=== PATIENT | female | born 1950 | race Caucasian/White ===

== ENCOUNTER 2018-07-28 10:54 | Inpatient (IN) ==
[2018-07-29] MEDS: *HR* OxyCODONE Immed Rel 5 MG TABLET PO PRN ×2 (17:48→23:34)
[2018-07-29] MEDS: tiZANidine 4 MG TABLET PO PRN (19:11)
[2018-07-29] MEDS: Aspirin Enteric Coated 325 MG Tablet PO SCH (19:11)
[2018-07-30] MEDS: tiZANidine 4 MG TABLET PO PRN ×3 (02:13→17:38)
[2018-07-30] MEDS: *HR* OxyCODONE Immed Rel 5 MG TABLET PO PRN ×5 (05:45→23:30)
[2018-07-30] MEDS: *HR* Enoxaparin 30 MG/0.3 ML SYRINGE SQ SCH (05:45)
[2018-07-30 06:43] LABS: Basophils % 0.4 %; Eosinophils # 0.1 K/mcL (0.0-0.6); Eosinophils % 1.5 %; Hematocrit 31.6 % (35.3-44.9); Hemoglobin 10.8 g/dL (11.5-15.4); Immature Granulocytes % 0.5 % (0-4); Lymphocytes # 1.4 K/mcL (0.6-4.6); Lymphocytes % 19.3 %; Mean Corpuscular HGB Conc 34.2 g/dL (31.6-35.5); Mean Corpuscular Hemoglobin 30.4 pg (28.0-33.3); Mean Platelet Volume 9.8 fL (9.4-12.4); Monocytes # 0.6 K/mcL (0.0-1.3); Monocytes % 7.9 %; Neutrophils # 5.2 K/mcL (1.6-8.9); Platelet Count 186 K/mcL (140-400); Red Blood Count 3.55 M/mcL (3.82-4.97); Red Cell Distribution Width 14.5 % (11.5-14.5); Segmented Neutrophils % 70.4 %
[2018-07-30 06:58] LABS: BUN/Creatinine Ratio 19 (6-26); Blood Urea Nitrogen 13 mg/dL (8-23); Calcium 8.7 mg/dL (8.6-10.3); Carbon Dioxide 24 mEq/L (23-29); Chloride 107 mEq/L (98-107); Glucose 125 mg/dL (70-105); Osmolality,Calculated 286 (280-300); Potassium 3.7 mEq/L (3.5-5.1); Sodium 137 mEq/L (136-145); eGFR For Non-African Americans > 60 (> 60)
[2018-07-30] MEDS ORDERED: Lisinopril 20 MG TABLET PO SCH (09:00)
[2018-07-30] MEDS ORDERED: *HR* OxyCODONE Immed Rel 5 MG TABLET PO PRN (10:04)
[2018-07-30] MEDS: Aspirin Enteric Coated 325 MG Tablet PO SCH ×2 (10:28→19:24)
--- NOTE | 2018-07-30 11:03 | Internal Med History&Physical ---
Addendum entered and electronically signed by Ana Dugan 07/30/18 14:42: I have personally performed a face to face evaluation on this patient. I have reviewed and agree with the care plan. PT has some issues with pain control recently but currently seems tolerable. Original Note: Date of Encounter: 07/30/18 Time of Encounter: 11:01 Assessment and Plan (1) S/p total knee replacement, bilateral Current visit: No Status: Acute Patient has had a bilateral knee replacement on 07/27/18. Bilateral surgical incisions appear healthy and intact. Patient with moderate to severe pain to her bilateral knees after movement. Patient noted to have had a recent decrease in pain medication coverage after discharge from acute facility. We will increase patient's current pain medications and review her dosing of muscle relaxant. We will continue with continuous icing to bilateral knees. We will continue with physical therapy. Patient remains afebrile. (2) Diabetes mellitus Current visit: Yes Status: Chronic No acute issues. Patient's glucoses morning was 126 on fasting labs. 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 We will continue with current medications Qualifiers: Hypertension type: unspecified Qualified Code(s): I10 - Essential (primary) hypertension Internal Medicine - H&P: HPI Chief complaint: bilateral TKR Admitted From: Hospital to Hospital Transfer Plans for Post Hospital Care: Home History of present illness: Ms. Salgado is a 68 year old female, who was admitted to this facility due to we akness secondary to having bilateral total knee replacements done on 07/27/18. Patient currently states that she has moderate to severe pain to her bilateral legs after being discharged from hospital yesterday, during which time they reduced her pain medication. Patient complains of dull pain to bilateral legs which increases with movement. Patient currently has continuous icing to bilateral knees. Patient states that her knee replacement source due to osteoarthritis. Patient denies any other discomforts or shortness of breath. Past Med Surg Social Fam HX - Past Medical History Medical history: arthritis, hyperlipidemia, hypertension, other Additional medical history: hypercholesterolemia. depression/anxiety. barretts esophagus. diverticulitis Psychiatric history: anxiety, depression - Past Surgical History Surgical History: cholecystectomy, CLARENCE/BSO, other Additional surgical history: bowel resection. partial bowel resection. several surgeries for adhesions. ACDF - neck. EGD. lap choley. left knee arthroscopy 2. partial meniscectomy. EGD. colonoscopy - Social History Smoking Status: Never smoker Smokeless Tobacco Status: No Alcohol use: none Drug use: none - Family History Mother Living Status: Father Living Status: Hx Family Cardiac Disorders: Yes Internal Medicine - H&P: Meds Lisinopril [Zestril] 20 mg PO DAILY 08/27/15 [History] Paroxetine HCl [Paxil] 40 mg PO DAILY 08/27/15 [History] Pravastatin Sodium [Pravachol] 40 mg PO DAILY 08/27/15 [History] Acetaminophen [Tylenol] 500 mg PO Q6HR PRN 07/27/18 [History] Aspirin Enteric Coated [Aspirin EC] 325 mg PO BID 10 Days #20 tablet.dr 07/27/18 [Rx] Docusate Sodium [Colace] 100 mg PO BID 5 Days #10 capsule 07/27/18 [Rx] Esomeprazole Magnesium [Nexium 24Hr] 20 mg PO DAILY 07/27/18 [History] OxyCODONE Immed Rel [Roxicodone 5 MG] 5 mg PO Q6HR PRN 7 Days #28 tablet 07/27/18 [Rx] Lidocaine Patch [Lidoderm 5% patch] 2 each TP DAILY adh..patch 07/29/18 [Rx] Tizanidine HCl 2 mg PO TID PRN 07/29/18 [History] Allergy/AdvReac Type Severity Reaction Status Date / Time No Known Allergies Allergy Verified 07/27/18 07:07 All Systems PM: A 10-system review of systems was performed and is negative for pertinent findings except as documented above in the HPI. - Constitutional Constitutional: as per HPI, no chills, no fever(s), no night sweats - EENT Eyes: as per HPI, no change in vision, no discharge, no pain, no photophobia Ears: as per HPI, no ear discharge, no ear pain, no tinnitus Nose, mouth and throat: as per HPI, no dysphagia, no nasal discharge, no neck pain, no sore throat - Breasts Breasts: as per HPI - Cardiovascular Cardiovascular ROS IM: as per HPI, no chest pain, no diaphoresis, no dyspnea, no lightheadedness, no palpitations, no syncope - Respiratory Respiratory: as per HPI, no cough, no dyspnea, no wheezing, no excessive phlegm production - Gastrointestinal Gastrointestinal: as per HPI, no abdominal pain, no diarrhea, no hematemesis, no hematochezia, no melena, no nausea, no vomiting - Genitourinary Genitourinary: as per HPI, no change in urinary stream, no dysuria, no flank pain, no hematuria - Musculoskeletal Musculoskeletal ROS IM: as per HPI, no numbness, no tingling - Integumentary Integumentary IM: as per HPI, no rash, no unusual bruising - Neurological Neurological ROS: as per HPI, no confusion, no convulsions, no focal weakness, no numbness, no tingling, no tremor(s) - Psychiatric Psychiatric: as per HPI - Hematologic/Lymphatic Hematologic/Lymphatic: no easy bruising - Constitutional Vitals: Temp Pulse Resp BP Pulse Ox 99.0 F 70 18 117/71 96 07/30/18 07:36 07/30/18 07:36 07/30/18 07:36 07/30/18 07:36 07/30/18 07:36 General appearance: Present: A&O X 3, pleasant - Head Head exam: Present: atraumatic, normocephalic - Eye Eye exam: Present: PERRL, conjuntiva pink, sclera anicteric Pupils: Present: PERRL - Neck Neck exam general surgery: Present: supple, trachea midline. Absent: lymphadenopathy - Respiratory Respiratory exam: Present: CTAB. Absent: accessory muscle use, rales, rhonchi, wheezes Additional comments: Lungs are clear throughout upper [place] and diminished bases. Respiratory effort appears relaxed. No productive cough noted. - Cardiovascular Cardiovascular exam: Present: RRR, +S1, +S2. Absent: diastolic murmur, gallop, rubs, systolic murmur - GI/Abdominal GI/Abdominal exam: Present: normal bowel sounds, soft, no peritoneal signs. Absent: distended, tenderness - Extremities Exam Extremities exam: Present: warm, radial pulses palpable and symmetrical. Absent: calf tenderness, cyanotic, pedal edema Additional comments: Bilateral knees with midline surgical incisions that appear healthy and intact. Continuous icing and use to bilateral knees. - Neurological Exam Neurological exam: Present: CN II-XII intact, oriented X3, no focal deficits. Absent: pronater drift, facial droop, speech deficit - Skin Skin exam: Present: dry, intact Internal Med - H&P Results - Labs CBC & Chem 7: 07/30/18 06:35 07/30/18 06:35 Labs: Short CBC 07/30/18 Range/Units 06:35 WBC 7.4 (4.3-11.1) K/mcL Hgb 10.8 L (11.5-15.4) g/dL Hct 31.6 L (35.3-44.9) % Plt Count 186 (140-400) K/mcL Neutrophils # 5.2 (1.6-8.9) K/mcL BMP 07/30/18 06:35 Sodium 137 Potassium 3.7 Chloride 107 Carbon Dioxide 24 BUN 13 Creatinine 0.68 Glucose 125 H Calcium 8.7
[2018-07-30] MEDS ORDERED: *HR* OxyCODONE Immed Rel 5 MG TABLET PO SCH (12:00)
[2018-07-30] MEDS: 0.9 % Sodium Chloride 500 ML IVC SCH (18:40)
[2018-07-30] MEDS: Sennosides 8.6 MG TABLET PO SCH (19:24)
[2018-07-31] MEDS: 0.9 % Sodium Chloride 500 ML IVC SCH ×2 (00:21→08:05)
[2018-07-31] MEDS: 0.9 % Sodium Chloride 1,000 ML IVC SCH ×2 (03:00→15:08)
[2018-07-31] MEDS: *HR* OxyCODONE Immed Rel 5 MG TABLET PO PRN ×5 (03:30→20:48)
[2018-07-31] MEDS: *HR* Enoxaparin 30 MG/0.3 ML SYRINGE SQ SCH (05:28)
[2018-07-31] MEDS: tiZANidine 4 MG TABLET PO PRN (05:29)
[2018-07-31] MEDS: Aspirin Enteric Coated 325 MG Tablet PO SCH ×2 (08:01→20:13)
[2018-07-31] MEDS: Sennosides 8.6 MG TABLET PO SCH ×2 (08:02→20:12)
--- NOTE | 2018-07-31 13:12 | Internal Med Progress Note ---
Date of Encounter: 07/31/18 Time of Encounter: 13:10 - Assessment and plan (1) S/p total knee replacement, bilateral Current Visit: Yes Status: Acute Assessment and plan: Patient continues with water pain to bilateral knees which increases during mobilization. Patient's pain has reduced difficulty after recent changes in pain medication. Patient's surgical incisions appear healthy and intact. Minimal edema noted. No erythema or ecchymosis. Patient continues to have a low systolic blood pressure and continues to receive IV fluids this morning. We will discontinue Zanaflex as a possible medication cause and the hypotension. Patient's Zestril has been discontinued. (2) Diabetes mellitus Current Visit: Yes Status: Chronic Assessment and plan: No acute issues. Patient's glucose has been well controlled. We will continue with current medications. 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 Patient currently has received IV fluids overnight and his had her Zestril discontinued. We will currently discontinue Zanaflex. Patient remains asy mptomatic and has been ambulating without any complaints of palpitations or dizziness. Qualifiers: Hypertension type: unspecified Qualified Code(s): I10 - Essential (primary) hypertension - Time Spent With Patient less than 15 minutes - Subjective Interval history: Patient continues to complain of moderate pain to bilateral knees, which increases during mobilization. Patient states that her pain has reduced quite a bit after having adjustments to her pain medications. Nursing reports patient continues to have low systolic blood pressure with this morning's systolic and 87. Patient currently is asymptomatic and denies any palpitations or chest discomforts. Denies any dizziness. - Constitutional Vitals: Temp Pulse Resp BP Pulse Ox 97.7 F 70 14 87/42 96 07/31/18 07:30 07/31/18 07:30 07/31/18 07:30 07/31/18 07:30 07/31/18 07:30 General appearance: Present: A&O X 3, pleasant - Head Head exam: Present: atraumatic, normocephalic - Eye Eye exam: Present: PERRL, conjuntiva pink, sclera anicteric Pupils: Present: PERRL - Neck Neck exam general surgery: Present: supple, trachea midline. Absent: lymphadenopathy - Respiratory Respiratory exam: Present: CTAB. Absent: accessory muscle use, rales, rhonchi, wheezes - Cardiovascular Cardiovascular exam: Present: RRR, +S1, +S2. Absent: diastolic murmur, gallop, rubs, systolic murmur - GI/Abdominal GI/Abdominal exam: Present: normal bowel sounds, soft, no peritoneal signs. Absent: distended, tenderness - Extremities Exam Extremities exam: Present: warm, radial pulses palpable and symmetrical. Absent: calf tenderness, cyanotic, pedal edema Additional comments: Bilateral knees surgical sites remain healthy and intact. Continuous icing and use while patient is in bed. - Neurological Exam Neurological exam: Present: CN II-XII intact, oriented X3, no focal deficits. Absent: pronater drift, facial droop, speech deficit - Skin Skin exam: Present: dry, intact Internal Medicine: Result - Labs CBC & Chem 7: 07/30/18 06:35 07/30/18 06:35 Consult Discharge Plan - Plan Referrals: America Henry MD [Primary Care Provider] -
[2018-07-31] MEDS ORDERED: Ketorolac 30 MG/ML VIAL IVP ONE (13:47)
[2018-08-01] MEDS: *HR* Enoxaparin 30 MG/0.3 ML SYRINGE SQ SCH (04:35)
[2018-08-01] MEDS: *HR* OxyCODONE Immed Rel 5 MG TABLET PO PRN ×5 (04:35→20:26)
[2018-08-01] MEDS: Sennosides 8.6 MG TABLET PO SCH ×2 (08:22→21:47)
[2018-08-01] MEDS: Aspirin Enteric Coated 325 MG Tablet PO SCH (08:22)
[2018-08-01] MEDS ORDERED: Bisacodyl 10 MG RECTAL SUPPOSITORY RC PRN (11:00)
--- NOTE | 2018-08-01 11:13 | Internal Med Progress Note ---
Date of Encounter: 08/02/18 Time of Encounter: 10:45 - Subjective Interval history: - Assessment and plan (1) S/p total knee replacement, bilateral Current Visit: Yes Status: Acute Assessment and plan: Patient had severe complaints of pain in bilateral knees which increases during mobilization. She was also getting very anxious with therapy. She was given increase in pain med and also added Buspar. PT appears to be improved and much more comfortable now, she had anxiety after her surgery. Pt LE appear to be doing well. No asymetric edema. Patient's surgical incisions appear healthy and intact. Minimal edema noted. No erythema or ecchymosis did DC Zanaflex as a possible medication cause and the hypotension. Patient's Zestril has been discontinued. (2) Diabetes mellitus Current Visit: Yes Status: Chronic Assessment and plan: No acute issues. Patient's glucose has been well controlled. We will continue with current medications. 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 Patient di d get IV fluids and had her Zestril discontinued. also did discontinue Zanaflex. Patient remains asymptomatic and has been ambulating without any complaints of palpitations or dizziness. Qualifiers: Hypertension type: unspecified Qualified Code(s): I10 - Essential (primary) hypertension - Time Spent With Patient less than 15 minutes - Subjective Interval history: Patient continues to complain of moderate pain to bilateral knees, which increases during mobilization. Patient states that her pain has reduced quite a bit after having adjustments to her pain medications. Nursing reports patient continues to have low systolic blood pressure with this morning's systolic and 87. Patient currently is asymptomatic and denies any palpitations or chest discomforts. Denies any dizziness. EXAM General appearance: Present: A&O X 3, pleasant talkative - Head Head exam: Present: atraumatic, normocephalic - Eye Eye exam: Present: PERRL, conjuntiva pink, sclera anicteric Pupils: Present: PERRL - Neck Neck exam general surgery: Present: supple, trachea midline. Absent: lymp hadenopathy - Respiratory Respiratory exam: Present: CTAB. Absent: accessory muscle use, rales, rhonchi, wheezes - Cardiovascular Cardiovascular exam: Present: RRR, +S1, +S2. Absent: diastolic murmur, gallop, rubs, systolic murmur - GI/Abdominal GI/Abdominal exam: Present: normal bowel sounds, soft, no peritoneal signs. Absent: distended, tenderness - Extremities Exam Extremities exam: Present: warm, radial pulses palpable and symmetrical. Absent: calf tenderness, cyanotic, pedal edema Additional comments: Bilateral knees surgical sites remain healthy and intact. Continuous icing and use while patient is in bed. - Neurological Exam Neurological exam: Present: CN II-XII intact, oriented X3, no focal deficits. Absent: pronater drift, facial droop, speech deficit - Skin Skin exam: Present: dry, intact - Constitutional Vitals: Temp Pulse Resp BP Pulse Ox 98.2 F 79 16 143/83 95 08/01/18 06:50 08/01/18 06:50 07/31/18 18:54 08/01/18 06:50 08/01/18 06:50 Internal Medicine: Result - Labs CBC & Chem 7: 07/30/18 06:35 07/30/18 06:35 Consult Discharge Plan - Plan Referrals: America Henry MD [Primary Care Provider] -
[2018-08-02] MEDS: *HR* OxyCODONE Immed Rel 5 MG TABLET PO PRN ×5 (00:49→19:49)
[2018-08-02] MEDS: *HR* Enoxaparin 30 MG/0.3 ML SYRINGE SQ SCH (06:01)
[2018-08-02] MEDS: Sennosides 8.6 MG TABLET PO SCH ×2 (08:18→19:50)
--- NOTE | 2018-08-02 11:50 | Internal Med Progress Note ---
Date of Encounter: 08/02/18 Time of Encounter: 10:50 - Subjective Interval history: - Assessment and plan (1) S/p total knee replacement, bilateral Current Visit: Yes Status: Acute Assessment and plan: Patient had severe complaints of pain in bilateral knees which increases during mobilization. She was also getting very anxious with therapy. She was given increase in pain med and also added Buspar. PT appears to be improved and much more comfortable now, she had anxiety after her surgery. Pt LE appear to be doing well. No asymetric edema. Patient's surgical incisions appear healthy and intact. Minimal edema noted. No erythema or ecchymosis did DC Zanaflex as a possible medication cause and the hypotension. Patient's Zestril has been discontinued. (2) Diabetes mellitus Current Visit: Yes Status: Chronic Assessment and plan: No acute issues. Patient's glucose has been well controlled. We will continue with current medications. 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 adjust as needed Patient's blood pressure was low a few days ago with systolic at 87. Patient did get IV fluids and had her Zestril discontinued. also did discontinue Zanaflex. Patient remains asymptomatic and has been ambulating without any complaints of palpitations or dizziness. Qualifiers: Hypertension type: unspecified Qualified Code(s): I10 - Essential (primary) hypertension - Time Spent With Patient less than 15 minutes - Subjective Interval history: Patient has some improvement in pain of bilateral knees, which increases during mobilization. Patient states that her pain has reduced quite a bit after having adjustments to her pain medications. Nursing reports patient did have low BP with systolics of 87. Meds were adjusted. Today pt has systolic BP back to 130 to 150 will restart lower dose at lisinopril 10 mg day Patient currently is asymptomatic and denies any palpitations or chest discomforts. Denies any dizziness. EXAM General appearance: Present: A&O X 3, pleasant talkative - Head Head exam: Present: atraumatic, normocephalic - Eye Eye exam: Present: PERRL, conjuntiva pink, sclera anicteric Pupils: Present: PERRL - Neck Neck exam general surgery: Present: supple, trachea midline. Absent: lymphadenopathy - Respiratory Respiratory exam: Present: CTAB. Absent: accessory muscle use, rales, rhonchi, wheezes - Cardiovascular Cardiovascular exam: Present: RRR, +S1, +S2. Absent: diastolic murmur, gallop, rubs, systolic murmur - GI/Abdominal GI/Abdominal exam: Present: normal bowel sounds, soft, no peritoneal signs. Absent: distended, tenderness - Extremities Exam Extremities exam: Present: warm, radial pulses palpable and symmetrical. Absent: calf tenderness, cyanotic, pedal edema Additional comments: Bilateral knees surgical sites remain healthy and intact. Continuous icing and use while patient is in bed. - Neurological Exam Neurological exam: Present: CN II-XII intact, oriented X3, no focal deficits. Absent: pronater drift, facial droop, speech deficit - Skin Skin exam: Present: dry, intact - Constitutional Vitals: Temp Pulse Resp BP Pulse Ox 98.1 F 71 16 157/76 94 08/02/18 07:25 08/02/18 07:25 08/02/18 07:25 08/02/18 07:25 08/02/18 07:25 General appearance: Present: A&O X 3, pleasant Internal Medicine: Result - Labs CBC & Chem 7: 07/30/18 06:35 07/30/18 06:35 Consult Discharge Plan - Plan Referrals: America Henry MD [Primary Care Provider] -
[2018-08-03] MEDS: *HR* OxyCODONE Immed Rel 5 MG TABLET PO PRN ×4 (01:01→17:52)
[2018-08-03 05:12] LABS: Basophils # 0.1 K/mcL (0.0-0.2); Basophils % 0.7 %; Eosinophils # 0.4 K/mcL (0.0-0.6); Eosinophils % 5.2 %; Hematocrit 34.1 % (35.3-44.9); Hemoglobin 11.2 g/dL (11.5-15.4); Lymphocytes # 2.1 K/mcL (0.6-4.6); Lymphocytes % 28.7 %; Mean Corpuscular HGB Conc 32.8 g/dL (31.6-35.5); Mean Corpuscular Hemoglobin 30.4 pg (28.0-33.3); Mean Corpuscular Volume 92.4 fL (83.0-100.0); Mean Platelet Volume 9.1 fL (9.4-12.4); Monocytes # 0.7 K/mcL (0.0-1.3); Monocytes % 9.1 %; Red Blood Count 3.69 M/mcL (3.82-4.97); Red Cell Distribution Width 14.1 % (11.5-14.5); Segmented Neutrophils % 55.3 %
[2018-08-03 05:15] LABS: Platelet Count 284 K/mcL (140-400)
[2018-08-03 05:27] LABS: BUN/Creatinine Ratio 24 (6-26); Blood Urea Nitrogen 17 mg/dL (8-23); Calcium 9.3 mg/dL (8.6-10.3); Carbon Dioxide 26 mEq/L (23-29); Chloride 106 mEq/L (98-107); Glucose 113 mg/dL (70-105); Osmolality,Calculated 290 (280-300); Potassium 4.2 mEq/L (3.5-5.1); Sodium 139 mEq/L (136-145); eGFR For Non-African Americans > 60 (> 60)
[2018-08-03] MEDS: *HR* Enoxaparin 30 MG/0.3 ML SYRINGE SQ SCH (06:00)
[2018-08-03] MEDS: Sennosides 8.6 MG TABLET PO SCH ×2 (08:00→20:19)
--- NOTE | 2018-08-03 10:08 | Internal Med Progress Note ---
Addendum entered and electronically signed by Ana Dugan 08/04/18 14:32: I have personally performed a face to face evaluation on this patient. I have reviewed and agree with the care plan. Original Note: Date of Encounter: 08/03/18 Time of Encounter: 10:05 - Assessment and plan (1) S/p total knee replacement, bilateral Current Visit: Yes Status: Acute Assessment and plan: Patient continues with water pain to bilateral knees which increases during mobilization. Patient continues to have moderate amount of pain to her right knee. Patient states that her pain reduced somewhat with changes last week and pain medication but continues to describe her pain as 8 out of 10. Patient states her pain increases with mobilization. Patient has not progressing well with physical therapy and today ambulated greater than 150 feet. Surgical incisions appear healthy and healing well. Continuous icing and use when patient is in bed (2) Diabetes mellitus Current Visit: Yes Status: Chronic Assessment and plan: No acute issues. Patient's glucose has been well controlled. We will continue with current medications. Qualifiers: Diabetes mellitus type: type 2 Diabetes mellitus half-way insulin use: without half-way use Diabetes mellitus complication status: with unspecified complications Qualified Code(s): E11.8 - Type 2 diabetes mellitus with un specified complications (3) HTN (hypertension) Current Visit: Yes Status: Chronic Assessment and plan: Vital signs are currently stable. We will continue with current medications. Qualifiers: Hypertension type: unspecified Qualified Code(s): I10 - Essential (primary) hypertension - Subjective Interval history: Patient continues to complain of moderate pain to bilateral knees, which increases during mobilization. Patient states that her pain is worse around her body right knee. She reports patient said several occasions where she was crying due to the pain which she describes as a 8 out of 10. Patient has been progressing well with physical therapy with therapy stating that she has ambulated greater than 150 feet - Constitutional Vitals: Temp Pulse Resp BP Pulse Ox 98.8 F 67 16 152/85 96 08/03/18 06:49 08/03/18 06:49 08/03/18 06:49 08/03/18 06:49 08/03/18 06:49 General appearance: Present: A&O X 3, pleasant - Head Head exam: Present: atraumatic, normocephalic - Eye Eye exam: Present: PERRL, conjuntiva pink, sclera anicteric Pupils: Present: PERRL - Neck Neck exam general surgery: Present: supple, trachea midline. Absent: lymphadenopathy - Respiratory Respiratory exam: Present: CTAB. Absent: accessory muscle use, rales, rhonchi, wheezes - Cardiovascular Cardiovascular exam: Present: RRR, +S1, +S2. Absent: diastolic murmur, gallop, rubs, systolic murmur - GI/Abdominal GI/Abdominal exam: Present: normal bowel sounds, soft, no peritoneal signs. Absent: distended, tenderness - Extremities Exam Extremities exam: Present: warm, radial pulses palpable and symmetrical. Absent: calf tenderness, cyanotic, pedal edema Additional comments: Bilateral knees with midline incisions that appear dry and intact. Minimal amount of swelling noted - Neurological Exam Neurological exam: Present: CN II-XII intact, oriented X3, no focal deficits. Absent: pronater drift, facial droop, speech deficit - Skin Skin exam: Present: dry, intact Internal Medicine: Result - Labs CBC & Chem 7: 08/03/18 05:00 08/03/18 05:00 Labs: Short CBC 08/03/18 Range/Units 05:00 WBC 7.2 (4.3-11.1) K/mcL Hgb 11.2 L (11.5-15.4) g/dL Hct 34.1 L (35.3-44.9) % Plt Count 284 D (140-400) K/mcL Neutrophils # 4.0 (1.6-8.9) K/mcL BMP 08/03/18 05:00 Sodium 139 Potassium 4.2 Chloride 106 Carbon Dioxide 26 BUN 17 Creatinine 0.71 Glucose 113 H Calcium 9.3 Consult Discharge Plan - Plan Referrals: America Henry MD [Primary Care Provider] -
[2018-08-03] MEDS ORDERED: *HR* FentaNYL PATCH 12 MCG PATCH TD SCH (10:45)
[2018-08-03] MEDS: tiZANidine 4 MG TABLET PO PRN ×2 (14:51→20:19)
[2018-08-04] MEDS: *HR* OxyCODONE Immed Rel 5 MG TABLET PO PRN ×6 (00:43→23:55)
[2018-08-04] MEDS: *HR* Enoxaparin 30 MG/0.3 ML SYRINGE SQ SCH (05:54)
[2018-08-04] MEDS: Sennosides 8.6 MG TABLET PO SCH ×2 (08:17→19:26)
[2018-08-04] MEDS: tiZANidine 4 MG TABLET PO PRN ×2 (08:18→17:39)
--- NOTE | 2018-08-04 11:23 | Internal Med Progress Note ---
Addendum entered and electronically signed by Ana Dugan 08/04/18 14:33: I have personally performed a face to face evaluation on this patient. I have reviewed and agree with the care plan. She has low pain tolerance but is progressing in therapy. She has good BP today and is eating better. Original Note: Date of Encounter: 08/04/18 Time of Encounter: 11:21 - Assessment and plan (1) S/p total knee replacement, bilateral Current Visit: Yes Status: Acute Assessment and plan: Continue PT and OT. Pain controlled with oxycodone. Follow up with ortho as scheduled. (2) Diabetes mellitus Current Visit: Yes Status: Chronic Assessment and plan: Continue current medication. Monitor fingerstick blood sugar. Controlled at this time. Qualifiers: Diabetes mellitus type: type 2 Diabetes mellitus intermediate frame tender insulin use: without shelter use Diabetes mellitus complication status: with unspecified complications Qualified Code(s): E11.8 - Type 2 diabetes mellitus with unspecified complications (3) HTN (hypertension) Current Visit: Yes Status: Chronic Assessment and plan: Controlled with current medication. Monitor blood pressure. Qualifiers: Hypertension type: unspecified Qualified Code(s): I10 - Essential (primary) hypertension - Time Spent With Patient less than 15 minutes - Subjective Interval history: Participating well with therapy. Ambulated greater than 150 feet with Walker with therapy. Pain control with oxycodone. Scheduled to discharge to home with tomorrow. Patient denies fever, chills, nausea vomiting or diarrhea. States bowels are moving as normal. - Constitutional Vitals: Temp Pulse Resp BP Pulse Ox 97.9 F 74 16 130/78 95 08/04/18 07:09 08/04/18 07:09 08/04/18 07:09 08/04/18 07:09 08/04/18 07:09 General appearance: Present: A&O X 3, pleasant, no acute distress, answers questions appropriately - Head Head exam: Present: atraumatic, normocephalic - Eye Eye exam: Present: PERRL, conjuntiva pink, sclera anicteric Pupils: Present: PERRL - Neck Neck exam general surgery: Present: supple, trachea midline. Absent: lymphadenopathy - Respiratory Respiratory exam: Present: CTAB. Absent: accessory muscle use, rales, rhonchi, wheezes - Cardiovascular Cardiovascular exam: Present: RRR, +S1, +S2. Absent: diastolic murmur, gallop, rubs, systolic murmur - GI/Abdominal GI/Abdominal exam: Present: normal bowel sounds, soft, no peritoneal signs. Absent: distended, tenderness - Extremities Exam Extremities exam: Present: warm, radial pulses palpable and symmetrical. Absent: calf tenderness, cyanotic, pedal edema - Incison Comments: Bilateral knee incisions dressings dry and intact. No drainage. Small amount of surrounding edema. - Neurological Exam Neurological exam: Present: CN II-XII intact, oriented X3, no focal deficits. Absent: pronater drift, facial droop, speech deficit - Skin Skin exam: Present: dry, intact Internal Medicine: Result - Labs CBC & Chem 7: 08/03/18 05:00 08/03/18 05:00 Consult Discharge Plan - Plan Referrals: America Henry MD [Primary Care Provider] -
[2018-08-05] MEDS: *HR* Enoxaparin 30 MG/0.3 ML SYRINGE SQ SCH (04:33)
[2018-08-05] MEDS: *HR* OxyCODONE Immed Rel 5 MG TABLET PO PRN ×3 (04:33→12:24)
[2018-08-05 08:17] VITALS: BP 129/74
[2018-08-05] MEDS: Sennosides 8.6 MG TABLET PO SCH (08:18)
[2018-08-05] MEDS: tiZANidine 4 MG TABLET PO PRN ×2 (09:34→14:11)
--- NOTE | 2018-08-05 11:22 | Discharge Summary ---
Addendum entered and electronically signed by Ana Dugan 08/06/18 12:00: I have personally performed a face to face evaluation on this patient. I have reviewed and agree with the care plan. PT will keep follow up with ortho and her primary care provider. Original Note: Date of Encounter: 08/05/18 Time of Encounter: 11:16 - Discharge Diagnosis (1) S/p total knee replacement, bilateral Priority: Primary Status: Acute Comments: Continue outpatient PT and OT. Follow up with surgeon as scheduled. Continue current pain medication as needed. (2) Diabetes mellitus Priority: Secondary Status: Chronic Comments: Controlled with current medication. Monitor fingerstick blood sugar. Follow up with PCP. 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 Monitor blood pressure. Qualifiers: Hypertension type: essential hypertension Qualified Code(s): I10 - Essential (primary) hypertension Hospital course: Ms. Salgado is a 68 year old female discharging to home status post bilateral knee replacement. Patient taking oxycodone and tizanidine for pain. Scheduled to follow up with ortho as scheduled and primary care physician in one week. Continue outpatient PT and OT. Discharge discussed with: patient, family, nurse, social work - Time Spent with Patient Total time spent providing and/or coordinating discharge services: Time spent: Less than 30 minutes - Discharge Medications Prescriptions: No Action Pravastatin Sodium [Pravachol] 40 mg PO DAILY Paroxetine HCl [Paxil] 40 mg PO DAILY Lisinopril [Zestril] 20 mg PO DAILY Acetaminophen [Tylenol] 500 mg PO Q6HR PRN PRN Reason: Mild To Moderate Pain Esomeprazole Magnesium [Nexium 24Hr] 20 mg PO DAILY Aspirin Enteric Coated [Aspirin EC] 325 mg PO BID 10 Days #20 tablet. Lidocaine Patch [Lidoderm 5% patch] 2 each TP DAILY adh..patch Tizanidine HCl 2 mg PO TID PRN PRN Reason: Spasms Home Medications: Lisinopril [Zestril] 20 mg PO DAILY 08/27/15 [History] Paroxetine HCl [Paxil] 40 mg PO DAILY 08/27/15 [History] Pravastatin Sodium [Pravachol] 40 mg PO DAILY 08/27/15 [History] Acetaminophen [Tylenol] 500 mg PO Q6HR PRN 07/27/18 [History] Aspirin Enteric Coated [Aspirin EC] 325 mg PO BID 10 Days #20 tablet. 07/27/18 [Rx] Esomeprazole Magnesium [Nexium 24Hr] 20 mg PO DAILY 07/27/18 [History] Buspirone HCl [Buspar] 10 mg PO BID #28 tablet 08/05/18 [Rx] Docusate [Colace] 100 mg PO BID capsule 08/05/18 [Rx] Lidocaine Patch [Lidoderm 5% patch] 2 each TP DAILY #7 adh..patch 08/05/18 [Rx] OxyCODONE Immed Rel [Roxicodone 5 MG] 5 mg PO Q4HR PRN 7 Days #42 tablet 08/05/18 [Rx] Tizanidine HCl 2 mg PO TID PRN #20 tablet 08/05/18 [Rx] Allergies/Adverse Reactions: Allergy/AdvReac Type Severity Reaction Status Date / Time No Known Allergies Allergy Verified 07/27/18 07:07 Date of admission: 07/29/18 15:28 Primary care physician: America Henry Consults: 07/29/18 16:00 Consult to Occupational Therapy [CONS] Routine Comment: Evaluate, develop and implement POC Reason for Consult: eval Does patient have active BEDREST order?: No Is patient medically & hemodynamically stable?: Yes Consult to Physical Therapy [CONS] Routine Comment: Evaluate, develop and implement POC Reason for Consult: eval Does patient have active BEDREST order?: No Is patient medically & hemodynamically stable?: Yes Consult to Recreational Therapy [CONS] Routine Comment: Evaluate, develop and implement POC Consult to Solar Electric/Photovoltaic Installer [CONS] Routine Reason for SW Consult: eval Discharging clinician: Ana Dugan Anticipated date of discharge: 08/05/18 - Constitutional Vitals: Temp Pulse Resp BP Pulse Ox 99.1 F 79 17 129/74 99 08/05/18 07:00 08/05/18 07:00 08/05/18 07:00 08/05/18 07:00 08/05/18 07:00 General appearance: Present: cooperative, A&O X 3, pleasant, no acute distress, answers questions appropriately - Head Head exam: Present: atraumatic, normocephalic - Eye Eye exam: Present: PERRL, conjuntiva pink, sclera anicteric Pupils: Present: PERRL - Neck Neck exam general surgery: Present: supple, trachea midline. Absent: lymphadenopathy - Respiratory Respiratory exam: Present: CTAB. Absent: accessory muscle use, rales, rhonchi, wheezes - Cardiovascular Cardiovascular exam: Present: RRR, +S1, +S2. Absent: diastolic murmur, gallop, rubs, systolic murmur - GI/Abdominal GI/Abdominal exam: Present: normal bowel sounds, soft, no peritoneal signs. Absent: distended, tenderness - Extremities Exam Extremities exam: Present: warm, radial pulses palpable and symmetrical. Absent: calf tenderness, cyanotic, pedal edema - Incison Comments: Bilateral knee incisions dressings dry and intact. No drainage. Surrounding edema is minimal. - Neurological Exam Neurological exam: Present: CN II-XII intact, oriented X3, no focal deficits. Absent: pronater drift, facial droop, speech deficit - Skin Skin exam: Present: dry, intact - Patient Status Disposition: Home, Self-Care Condition: Good Functional capacity at discharge: uses cane/walker Overall status at discharge: patient is progressing back to baseline - Discharge Instructions Instructions: Aspirin (By mouth), Laxative, Stool Softeners (By mouth), Oxycodone, Rapid Release (By mouth), Tizanidine (By mouth), Total Knee Replacement (DC) Follow Up With: Blanca Mayberry PAC [Physician Census Enumerator] - 08/06/18 10:00 am (Also see Blanca Mayberry on August 14 at 0930) Grant Evangelista MD [Partnered Physician] - 08/26/18 5:15 pm America Henry MD [Primary Care Provider] - 08/12/18 10:45 am - Diet and Activity Activity: as per physical therapy Diet: diabetic diet
== END 2018-08-05 14:26 | disposition home or self-care (01) | DRG 561 ==
LOC: INPGRE 07-29 15:28

== ENCOUNTER 2018-12-30 15:12 | Inpatient (IN) ==
[2018-12-30] MEDS: *HR* OxyCODONE Immed Rel 5 MG TABLET PO PRN ×2 (17:34→22:55)
[2018-12-30] MEDS: Gabapentin 300 MG CAPSULE PO SCH (20:33)
[2018-12-30] MEDS ORDERED: cloNIDine HCl 0.1 MG TABLET PO PRN (22:23)
[2018-12-31] MEDS: *HR* Enoxaparin 40 MG/0.4 ML SYRINGE SQ SCH (05:01)
[2018-12-31] MEDS: *HR* OxyCODONE Immed Rel 5 MG TABLET PO PRN ×5 (05:08→22:16)
[2018-12-31 05:20] LABS: Basophils % 0.4 %; Eosinophils # 0.2 K/mcL (0.0-0.6); Eosinophils % 3.8 %; Hematocrit 27.1 % (35.3-44.9); Hemoglobin 8.7 g/dL (11.5-15.4); Immature Granulocytes % 0.5 % (0-4); Lymphocytes # 1.7 K/mcL (0.6-4.6); Lymphocytes % 30.6 %; Mean Corpuscular HGB Conc 32.1 g/dL (31.6-35.5); Mean Corpuscular Hemoglobin 30.5 pg (28.0-33.3); Mean Corpuscular Volume 95.1 fL (83.0-100.0); Mean Platelet Volume 9.4 fL (9.4-12.4); Monocytes # 0.5 K/mcL (0.0-1.3); Monocytes % 8.9 %; Neutrophils # 3.1 K/mcL (1.6-8.9); Platelet Count 201 K/mcL (140-400); Red Blood Count 2.85 M/mcL (3.82-4.97); Red Cell Distribution Width 13.4 % (11.5-14.5); Segmented Neutrophils % 55.8 %; White Blood Count 5.6 K/mcL (4.3-11.1)
[2018-12-31 05:34] LABS: Alanine Aminotransferase 15 Units/L (7-52); Albumin 3.5 g/dL (3.5-5.7); Albumin/Globulin Ratio 1.7 (1.1-2.2); Alkaline Phosphatase 82 Units/L (34-104); Aspartate Amino Transferase 17 Units/L (13-39); BUN/Creatinine Ratio 16 (6-26); Bilirubin,Total 0.4 mg/dL (0.3-1.0); Blood Urea Nitrogen 12 mg/dL (8-23); Calcium 8.6 mg/dL (8.6-10.3); Carbon Dioxide 30 mEq/L (23-29); Chloride 105 mEq/L (98-107); Globulin 2.1 g/dL (2.4-3.5); Glucose 103 mg/dL (70-105); Magnesium 2.1 mg/dL (1.6-2.6); Osmolality,Calculated 288 (280-300); Potassium 3.8 mEq/L (3.5-5.1); Sodium 139 mEq/L (136-145); Total Protein 5.6 g/dL (6.4-8.9); eGFR For African Americans > 60 (> 60); eGFR For Non-African Americans > 60 (> 60)
[2018-12-31] MEDS: Gabapentin 300 MG CAPSULE PO SCH ×3 (09:04→22:16)
[2018-12-31] MEDS: Lisinopril 20 MG TABLET PO SCH (09:05)
--- NOTE | 2018-12-31 10:14 | Internal Med History&Physical ---
Date of Encounter: 12/31/18 Time of Encounter: 10:10 Assessment and Plan (1) Status post total knee replacement, right Current visit: Yes Status: Acute Patient was transferred to this facility for rehabilitation due to weakness secondary to a revision of her right total knee replacement. Patient states that her pain to his right knee remains moderate after mobilization, but states that her pain is tolerable with current medications. Right knee midline incision appears healthy with no drainage, no edema or ecchymosis. Patient using continuous icing. Patient observed mobilizing and appears steady with the use of a walker. We will continue with therapy and current medications (2) HTN (hypertension) Current visit: Yes Status: Chronic Vital signs are stable during this admission. We will continue with current home medications. Qualifiers: Hypertension type: essential hypertension Qualified Code(s): I10 - Essential (primary) hypertension (3) Diabetes mellitus Current visit: Yes Status: Chronic No acute issues. Patient's glucose since her admission has remained stable with fingersticks less than 200. 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 Salgado is a 68 year old female, who was transferred to this facility from [facility] after having a revision of her right total knee replacement on 12/28/18. Patient was recently seen several months ago after having bilateral total knee replacements and had participated in rehabilitation here at [facility]. Patient had progressed with no issues and was eventually discharged to home with home health. Per medical records patient continued to have pain to her right knee and was reevaluated by orthopedic surgeon, who eventually treated her surgically with a revision of hardware. Right knee midline incision appears dry and intact. No ecchymosis or erythema noted. No drainage from wound. Patient states she continues to have moderate pain to right knee after mobilizing, but states that her pain is tolerable with current medications. Patient was observed ambulating with walker and appeared steady. Patient also has a history of diabetes and hypertension. Past Med Surg Social Fam HX - Past Medical History Medical history: arthritis, hyperlipidemia, hypertension, RA, other Additional medical history: hypercholesterolemia. depression/anxiety. barretts esophagus. diverticulitis Psychiatric history: anxiety, depression - Past Surgical History Surgical History: cholecystectomy, hysterectomy, knee replacement, CLARENCE/BSO, other Additional surgical history: right total knee. partial bowel resection. several surgeries for adhesions. ACDF - neck. EGD. lap choley. left knee arthroscopy 2. partial meniscectomy. EGD. colonoscopy - Social History Smoking Status: Never smoker Smokeless Tobacco Status: No Alcohol use: none Drug use: none - Family History Mother Living Status: Hx Family Endocrine Disorder: Yes (Very bad Diabetic) Father Living Status: Hx Family Cardiac Disorders: Yes ( of Heart Attack at 45) Internal Medicine - H&P: Meds Lisinopril [Zestril] 20 mg PO DAILY 08/27/15 [History] Paroxetine HCl [Paxil] 40 mg PO DAILY 08/27/15 [History] Pravastatin Sodium [Pravachol] 40 mg PO DAILY 08/27/15 [History] Acetaminophen [Tylenol] 500 mg PO Q8H PRN 07/27/18 [History] Aspirin Enteric Coated [Aspirin EC] 325 mg PO BID 10 Days #20 tablet.dr 12/28/18 [Rx] Docusate Sodium [Colace] 100 mg PO BID 5 Days #10 capsule 12/28/18 [Rx] OxyCODONE Immed Rel [Roxicodone 5 MG] 5 mg PO Q6HR PRN 5 Days #20 tablet 12/28/18 [Rx] Ferrous Sulfate 325 mg PO BIDWM tablet 12/30/18 [Rx] Gabapentin [Neurontin] 300 mg PO TID capsule 12/30/18 [Rx] Lidocaine Patch [Lidoderm 5% patch] 1 each TP DAILY adh..patch 12/30/18 [Rx] Allergy/AdvReac Type Severity Reaction Status Date / Time No Known Allergies Allergy Verified 12/28/18 13:29 All Systems PM: A 10-system review of systems was performed and is negative for pertinent findings except as documented above in the HPI. - Constitutional Constitutional: as per HPI, no chills, no fever(s), no night sweats - EENT Eyes: as per HPI, no change in vision, no discharge, no pain, no photophobia Ears: as per HPI, no ear discharge, no ear pain, no tinnitus Nose, mouth and throat: as per HPI, no dysphagia, no nasal discharge, no neck pain, no sore throat - Breasts Breasts: as per HPI - Cardiovascular Cardiovascular ROS IM: as per HPI, no chest pain, no diaphoresis, no dyspnea, no lightheadedness, no palpitations, no syncope - Respiratory Respiratory: as per HPI, no cough, no dyspnea, no wheezing, no excessive phlegm production - Gastrointestinal Gastrointestinal: as per HPI, no abdominal pain, no diarrhea, no hematemesis, no hematochezia, no melena, no nausea, no vomiting - Genitourinary Genitourinary: as per HPI, no change in urinary stream, no dysuria, no flank pain, no hematuria - Musculoskeletal Musculoskeletal ROS IM: as per HPI, no numbness, no tingling - Integumentary Integumentary IM: as per HPI, no rash, no unusual bruising - Neurological Neurological ROS: as per HPI, no confusion, no convulsions, no focal weakness, no numbness, no tingling, no tremor(s) - Psychiatric Psychiatric: as per HPI - Hematologic/Lymphatic Hematologic/Lymphatic: no easy bruising - Constitutional Vitals: Temp Pulse Resp BP Pulse Ox 98.8 F 87 16 116/69 94 12/31/18 06:42 12/31/18 06:42 12/31/18 06:42 12/31/18 06:42 12/31/18 06:42 General appearance: Present: A&O X 3, pleasant - Head Head exam: Present: atraumatic, normocephalic - Eye Eye exam: Present: PERRL, conjuntiva pink, sclera anicteric Pupils: Present: PERRL - Neck Neck exam general surgery: Present: supple, trachea midline. Absent: lymphadenopathy - Respiratory Respiratory exam: Present: decreased breath sounds, CTAB. Absent: accessory muscle use, rales, rhonchi, wheezes - Cardiovascular Cardiovascular exam: Present: RRR, +S1, +S2. Absent: diastolic murmur, gallop, rubs, systolic murmur - GI/Abdominal GI/Abdominal exam: Present: normal bowel sounds, soft, no peritoneal signs. Absent: distended, tenderness - Extremities Exam Extremities exam: Present: warm, radial pulses palpable and symmetrical. Absent: calf tenderness, cyanotic, pedal edema Additional comments: Right knee has a midline incision that appears healthy, with no ecchymosis or erythema. Continued icing and place. No edema - Neurological Exam Neurological exam: Present: CN II-XII intact, oriented X3, no focal deficits. Absent: pronater drift, facial droop, speech deficit - Skin Skin exam: Present: dry, intact Internal Med - H&P Results - Labs CBC & Chem 7: 12/31/18 05:00 12/31/18 05:00 Labs: Short CBC 12/31/18 Range/Units 05:00 WBC 5.6 (4.3-11.1) K/mcL Hgb 8.7 L (11.5-15.4) g/dL Hct 27.1 L (35.3-44.9) % Plt Count 201 (140-400) K/mcL Neutrophils # 3.1 (1.6-8.9) K/mcL BMP 12/31/18 05:00 Sodium 139 Potassium 3.8 Chloride 105 Carbon Dioxide 30 H BUN 12 Creatinine 0.73 Glucose 103 Calcium 8.6 Liver Function 12/31/18 Range/Units 05:00 Total Bilirubin 0.4 (0.3-1.0) mg/dL AST 17 (13-39) Units/L ALT 15 (7-52) Units/L Alkaline Phosphatase 82 (34-104) Units/L Albumin 3.5 (3.5-5.7) g/dL
[2019-01-01] MEDS: *HR* OxyCODONE Immed Rel 5 MG TABLET PO PRN ×2 (05:25→09:52)
[2019-01-01] MEDS: *HR* Enoxaparin 40 MG/0.4 ML SYRINGE SQ SCH (05:25)
[2019-01-01] MEDS: Gabapentin 300 MG CAPSULE PO SCH ×3 (07:57→21:04)
[2019-01-01] MEDS: Lisinopril 20 MG TABLET PO SCH (07:57)
--- NOTE | 2019-01-01 10:34 | Internal Med Progress Note ---
Date of Encounter: 01/01/19 Time of Encounter: 10:32 - Assessment and plan (1) Status post total knee replacement, right Current Visit: Yes Status: Acute Assessment and plan: Continue PT and OT. Follow up with ortho as scheduled. Continue oxycodone. Muscle relaxant ordered. Will monitor for effectiveness. (2) Diabetes mellitus Current Visit: Yes Status: Chronic Assessment and plan: Controlled with current medication. Monitor fingerstick blood sugar. 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 Monitor blood pressure. Qualifiers: Hypertension type: essential hypertension Qualified Code(s): I10 - Essential (primary) hypertension (4) Postoperative anemia Current Visit: Yes Status: Acute Assessment and plan: Hemoglobin 8.7. Will continue to monitor. - Time Spent With Patient less than 15 minutes - Subjective Interval history: Patient participating well with therapy. States continues to have pain with taking oxycodone. Discussed adding tizanidine to pain regimen. last BM was prior to surgery. miralax ordered. denies fever, chill, NVD. denies SOB or chest pain. - Constitutional Vitals: Temp Pulse Resp BP Pulse Ox 97.7 F 77 16 112/66 94 01/01/19 07:19 01/01/19 07:19 01/01/19 07:19 01/01/19 07:19 01/01/19 07:19 General appearance: Present: cooperative, A&O X 3, pleasant, no acute distress, answers questions appropriately - Head Head exam: Present: atraumatic, normocephalic - Eye Eye exam: Present: PERRL, conjuntiva pink, sclera anicteric Pupils: Present: PERRL - Neck Neck exam general surgery: Present: supple, trachea midline. Absent: lymphadenopathy - Respiratory Respiratory exam: Present: CTAB. Absent: accessory muscle use, rales, rhonchi, wheezes - Cardiovascular Cardiovascular exam: Present: RRR, +S1, +S2. Absent: diastolic murmur, gallop, rubs, systolic murmur - GI/Abdominal GI/Abdominal exam: Present: normal bowel sounds, soft, no peritoneal signs. Absent: distended, tenderness - Extremities Exam Extremities exam: Present: warm, radial pulses palpable and symmetrical. Absent: calf tenderness, cyanotic, pedal edema - Incison Comments: Right knee incision dressing dry and intact, has surrounding edema. - Neurological Exam Neurological exam: Present: CN II-XII intact, oriented X3, no focal deficits. Absent: pronater drift, facial droop, speech deficit - Skin Skin exam: Present: dry, intact Internal Medicine: Result - Labs CBC & Chem 7: 12/31/18 05:00 12/31/18 05:00 Consult Discharge Plan - Plan Referrals: America Henry MD [Primary Care Provider] -
[2019-01-01] MEDS: tiZANidine 4 MG TABLET PO PRN (12:25)
[2019-01-01 15:01] LABS: Basophils % 0.5 %; Eosinophils # 0.2 K/mcL (0.0-0.6); Eosinophils % 4.2 %; Hematocrit 25.5 % (35.3-44.9); Hemoglobin 8.2 g/dL (11.5-15.4); Immature Granulocytes % 1.1 % (0-4); Lymphocytes # 1.7 K/mcL (0.6-4.6); Lymphocytes % 30.5 %; Mean Corpuscular HGB Conc 32.2 g/dL (31.6-35.5); Mean Corpuscular Hemoglobin 30.9 pg (28.0-33.3); Mean Corpuscular Volume 96.2 fL (83.0-100.0); Mean Platelet Volume 9.5 fL (9.4-12.4); Monocytes # 0.4 K/mcL (0.0-1.3); Neutrophils # 3.2 K/mcL (1.6-8.9); Platelet Count 227 K/mcL (140-400); Red Blood Count 2.65 M/mcL (3.82-4.97); Red Cell Distribution Width 13.8 % (11.5-14.5); Segmented Neutrophils % 56.7 %; White Blood Count 5.7 K/mcL (4.3-11.1)
--- NOTE | 2019-01-01 17:26 | Emergency Department Note ---
Disposition Clinical Impression: Closed head injury Qualifiers: Encounter type: initial encounter Qualified Code(s): S09.90XA - Unspecified injury of head, initial encounter Sprain of cervical neck Qualifiers: Encounter type: initial encounter Qualified Code(s): S13.9XXA - Sprain of joints and ligaments of unspecified parts of neck, initial encounter Sprain of lumbar region Qualifiers: Encounter type: initial encounter Qualified Code(s): S33.5XXA - Sprain of ligaments of lumbar spine, initial encounter Disposition: Still a Patient Condition: Good Time of Disposition: 18:16 Fall HPI - General Chief Complaint: ED Head Injury Stated Complaint: fall Source: patient, family () Limitations: no limitations Nursing Notes Reviewed: Yes Vital Signs Reviewed: Yes - History of Present Illness HPI Narrative: 68-year-old female is brought to the emergency department for evaluation after a fall during her inpatient admission. The patient was using the bathroom and stood up and was dizzy and fell. She struck her head and now has complaints of pain to her head and neck and lower back. She also took her chipped a front incisor tooth. Patient states no chest pain or shortness of breath. She currently is being hospitalized for rehabilitation related to right knee total knee replacement surgery - Related Data Home Medications Medication Instructions Recorded Confirmed Lisinopril [Zestril] 20 mg PO DAILY 08/27/15 12/28/18 Paroxetine HCl [Paxil] 40 mg PO DAILY 08/27/15 12/28/18 Pravastatin Sodium [Pravachol] 40 mg PO DAILY 08/27/15 12/28/18 Acetaminophen [Tylenol] 500 mg PO Q8H PRN 07/27/18 12/28/18 Previous Rx's Medication Instructions Recorded Aspirin Enteric Coated [Aspirin EC] 325 mg PO BID 10 Days #20 tablet. 12/28/18 Docusate Sodium [Colace] 100 mg PO BID 5 Days #10 capsule 12/28/18 OxyCODONE Immed Rel [Roxicodone 5 5 mg PO Q6HR PRN 5 Days #20 tablet 12/28/18 MG] Ferrous Sulfate 325 mg PO BIDWM tablet 12/30/18 Gabapentin [Neurontin] 300 mg PO TID capsule 12/30/18 Lidocaine Patch [Lidoderm 5% patch] 1 each TP DAILY adh..patch 12/30/18 Allergies Allergy/AdvReac Type Severity Reaction Status Date / Time No Known Allergies Allergy Verified 12/28/18 13:29 All systems ED: reviewed and negative except as stated. Review of Systems: As Per HPI Fall PMH - Past Medical History Medical history: Reports: arthritis, hyperlipidemia, hypertension, RA, other Surgical history: Reports: cholecystectomy, hysterectomy, knee replacement, TA H/BSO, other Psychiatric history: Reports: anxiety, depression - Social History Smoking Status: Never smoker Alcohol use: Reports: none Drug use: Reports: none Physical Exam Constitutional: Patient is [alert], [healthy,and comfortable] and cooperative. HENT: Head: Normocephalic no obvious trauma Right Ear: External ear normal. Left Ear: External ear normal. Nose: Nose normal. Mouth/Throat: Oropharynx is clear and mucous membranes show [good hydration.] Right front incisor has a very small fracture to the distal surface of the tooth Eyes: Conjunctivae and EOM are normal. Pupils are equal, round, and reactive to light. Right eye exhibits [no] discharge. Left eye exhibits [no] discharge. Neck: Trachea is midline, normal range of motion and [phonation normal]. Neck supple. Cardiovascular: [Regular rhythm], S1 normal, S2 normal, normal heart sounds and intact distal pulses. Exam reveals no gallop and no friction rub. No murmur heard. [Capillary refill is brisk.] [Peripheral pulses are 2+] Pulmonary/Chest: Effort [normal] No stridor. [No] tachypnea. [No] respiratory distress. There are [no] decreased breath sounds. [There no wheezes, no rhonchi, or rales.] Abdominal: Soft. [Bowel sounds are normal]. There exhibits [no] distension and [no] mass. There is no hepatosplenomegaly. There is [no tenderness], [no] CVA tenderness. There is [no rigidity, no rebound, no guarding]. Musculoskeletal: Normal range of motion of uninvolved extremities. There exhibits [no edema]. She has tenderness over the paracervical spine. Chest has tenderness over the lower lumbar spine. She has no neurologic deficits of her upper or lower extremities. Neurological: Patient is alert. Patient displays no atrophy and no tremor. Moves all 4 extremities equally without gross deficit. No cranial nerve deficit and exhibits normal muscle tone. Coordination normal grossly. Skin: Skin is warm and dry. No erythema. No rash noted. Psychiatric: Patient has a [normal mood and affect.] Course Vital Signs Temperature 98.4 F 12/30/18 15:22 Pulse Rate 85 12/30/18 15:22 Respiratory Rate 16 12/30/18 15:22 Blood Pressure 113/65 12/30/18 15:22 O2 Sat by Pulse Oximetry 94 12/30/18 15:22 Temperature 97.7 F 01/01/19 07:19 Pulse Rate 77 01/01/19 07:19 Respiratory Rate 16 01/01/19 07:19 Blood Pressure 83/57 01/01/19 16:17 O2 Sat by Pulse Oximetry 94 01/01/19 07:19 Fall - Lab Data Result diagrams: 01/01/19 14:55 12/31/18 05:00 Lab Results 12/30/18 12/31/18 12/31/18 Range/Units 20:10 05:00 05:00 WBC 5.6 (4.3-11.1) K/mcL RBC 2.85 L (3.82-4.97) M/mcL Hgb 8.7 L (11.5-15.4) g/dL Hct 27.1 L (35.3-44.9) % MCV 95.1 (83.0-100.0) fL MCH 30.5 (28.0-33.3) pg MCHC 32.1 (31.6-35.5) g/dL RDW 13.4 (11.5-14.5) % Plt Count 201 (140-400) K/mcL MPV 9.4 (9.4-12.4) fL Immature Gran % 0.5 (0-4) % Seg Neutrophils % 55.8 % Lymphocytes % 30.6 % Monocytes % 8.9 % Eosinophils % 3.8 % Basophils % 0.4 % Neutrophils # 3.1 (1.6-8.9) K/mcL Lymphocytes # 1.7 (0.6-4.6) K/mcL Monocytes # 0.5 (0.0-1.3) K/mcL Eosinophils # 0.2 (0.0-0.6) K/mcL Basophils # 0.0 (0.0-0.2) K/mcL Sodium 139 (136-145) mEq/L Potassium 3.8 (3.5-5.1) mEq/L Chloride 105 (98-107) mEq/L Carbon Dioxide 30 H (23-29) mEq/L BUN 12 (8-23) mg/dL Creatinine 0.73 (0.60-1.20) mg/dL Est GFR ( Amer) > 60 (> 60) Est GFR (Non-Af Amer) > 60 (> 60) BUN/Creatinine Ratio 16 (6-26) Glucose 103 (70-105) mg/dL POC Glucose 150 H (70-99) mg/dL Calculated Osmolality 288 (280-300) Calcium 8.6 (8.6-10.3) mg/dL Magnesium 2.1 (1.6-2.6) mg/dL Total Bilirubin 0.4 (0.3-1.0) mg/dL AST 17 (13-39) Units/L ALT 15 (7-52) Units/L Alkaline Phosphatase 82 (34-104) Units/L Serum Total Protein 5.6 L (6.4-8.9) g/dL Albumin 3.5 (3.5-5.7) g/dL Globulin 2.1 L (2.4-3.5) g/dL Albumin/Globulin Ratio 1.7 (1.1-2.2) 12/31/18 12/31/18 12/31/18 Range/Units 06:25 11:13 16:34 WBC (4.3-11.1) K/mcL RBC (3.82-4.97) M/mcL Hgb (11.5-15.4) g/dL Hct (35.3-44.9) % MCV (83.0-100.0) fL MCH (28.0-33.3) pg MCHC (31.6-35.5) g/dL RDW (11.5-14.5) % Plt Count (140-400) K/mcL MPV (9.4-12.4) fL Immature Gran % (0-4) % Seg Neutrophils % % Lymphocytes % % Monocytes % % Eosinophils % % Basophils % % Neutrophils # (1.6-8.9) K/mcL Lymphocytes # (0.6-4.6) K/mcL Monocytes # (0.0-1.3) K/mcL Eosinophils # (0.0-0.6) K/mcL Basophils # (0.0-0.2) K/mcL Sodium (136-145) mEq/L Potassium (3.5-5.1) mEq/L Chloride (98-107) mEq/L Carbon Dioxide (23-29) mEq/L BUN (8-23) mg/dL Creatinine (0.60-1.20) mg/dL Est GFR ( Amer) (> 60) Est GFR (Non-Af Amer) (> 60) BUN/Creatinine Ratio (6-26) Glucose (70-105) mg/dL POC Glucose 111 H 105 H 127 H (70-99) mg/dL Calculated Osmolality (280-300) Calcium (8.6-10.3) mg/dL Magnesium (1.6-2.6) mg/dL Total Bilirubin (0.3-1.0) mg/dL AST (13-39) Units/L ALT (7-52) Units/L Alkaline Phosphatase (34-104) Units/L Serum Total Protein (6.4-8.9) g/dL Albumin (3.5-5.7) g/dL Globulin (2.4-3.5) g/dL Albumin/Globulin Ratio (1.1-2.2) // Range/Units 14:55 WBC 5.7 (4.3-11.1) K/mcL RBC 2.65 L (3.82-4.97) M/mcL Hgb 8.2 L (11.5-15.4) g/dL Hct 25.5 L (35.3-44.9) % MCV 96.2 (83.0-100.0) fL MCH 30.9 (28.0-33.3) pg MCHC 32.2 (31.6-35.5) g/dL RDW 13.8 (11.5-14.5) % Plt Count 227 (140-400) K/mcL MPV 9.5 (9.4-12.4) fL Immature Gran % 1.1 (0-4) % Seg Neutrophils % 56.7 % Lymphocytes % 30.5 % Monocytes % 7.0 % Eosinophils % 4.2 % Basophils % 0.5 % Neutrophils # 3.2 (1.6-8.9) K/mcL Lymphocytes # 1.7 (0.6-4.6) K/mcL Monocytes # 0.4 (0.0-1.3) K/mcL Eosinophils # 0.2 (0.0-0.6) K/mcL Basophils # 0.0 (0.0-0.2) K/mcL Sodium (136-145) mEq/L Potassium (3.5-5.1) mEq/L Chloride (98-107) mEq/L Carbon Dioxide (23-29) mEq/L BUN (8-23) mg/dL Creatinine (0.60-1.20) mg/dL Est GFR ( Amer) (> 60) Est GFR (Non-Af Amer) (> 60) BUN/Creatinine Ratio (6-26) Glucose (70-105) mg/dL POC Glucose (70-99) mg/dL Calculated Osmolality (280-300) Calcium (8.6-10.3) mg/dL Magnesium (1.6-2.6) mg/dL Total Bilirubin (0.3-1.0) mg/dL AST (13-39) Units/L ALT (7-52) Units/L Alkaline Phosphatase (34-104) Units/L Serum Total Protein (6.4-8.9) g/dL Albumin (3.5-5.7) g/dL Globulin (2.4-3.5) g/dL Albumin/Globulin Ratio (1.1-2.2) - Radiology Data Radiology results reviewed: Yes I reviewed the patient's radiology results. CT/CT head/brain wo con IMPRESSION: No acute intracranial abnormality. CT/CT cervical spine wo con IMPRESSION: Stable exam without evidence for acute abnormality of the cervical spine. CT/CT lumbar spine wo con IMPRESSION: No acute fracture to the lumbar spine. Stable multilevel degenerative changes
[2019-01-02] MEDS: *HR* Enoxaparin 40 MG/0.4 ML SYRINGE SQ SCH (06:30)
[2019-01-02] MEDS: *HR* OxyCODONE Immed Rel 5 MG TABLET PO PRN ×2 (06:30→14:11)
--- NOTE | 2019-01-02 08:26 | Internal Med Progress Note ---
Date of Encounter: 01/02/19 Time of Encounter: 08:24 - Assessment and plan (1) HTN (hypertension) Current Visit: Yes Status: Chronic Assessment and plan: stable at the present time no acute issues Qualifiers: Hypertension type: essential hypertension Qualified Code(s): I10 - Essential (primary) hypertension (2) Anemia Current Visit: No Status: Chronic Assessment and plan: on iron continue to follow Qualifiers: Anemia type: unspecified type Qualified Code(s): D64.9 - Anemia, unspecified (3) S/p total knee replacement, bilateral Current Visit: No Status: Acute Assessment and plan: right Knee replacement , revision,stable at the present time left knee well healed incision (4) Diabetes mellitus Current Visit: Yes Status: Chronic Assessment and plan: Hx of DM , not taking any meds at the present time will get HBA1c ,seems like she is diet control Qualifiers: Diabetes mellitus type: type 2 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 she had a fall and hi her head while in the bathroom ..CT brain and sine all negative for any acute issues at the present time she feels fine no acute issues of chest pain izzyness or any other complains . Has some constipation pain is stable some tenderness all over body - Constitutional Vitals: Temp Pulse Resp BP Pulse Ox 98.4 F 59 16 137/78 97 01/02/19 07:00 01/02/19 07:00 01/02/19 07:00 01/02/19 07:00 01/02/19 07:00 General appearance: Present: cooperative, A&O X 3, pleasant, no acute distress, answers questions appropriately - Head Head exam: Present: atraumatic - Eye Eye exam: Present: EOMI, PERRL Pupils: Present: PERRL - Neck Neck exam general surgery: Present: full ROM, normal inspection, supple. Absent: tenderness, nuchal rigidity, thyromegaly - Respiratory Respiratory exam: Present: CTAB. Absent: chest wall tenderness, prolonged expiratory phase, rales, respiratory distress, rhonchi, stridor, wheezes, tachypnea - Cardiovascular Cardiovascular exam: Present: RRR, +S1, +S2. Absent: diastolic murmur, irregular rhythm, JVD - GI/Abdominal GI/Abdominal exam: Present: normal bowel sounds, soft. Absent: distended, guarding, rebound, rigid, tenderness, no peritoneal signs - Extremities Exam Extremities exam: Absent: pedal edema, tenderness Additional comments: right knee has surgery , left knee old replacement ,wound clean - Incison Incision: Present: clean and dry, intact. Absent: draining, red, swollen, eryth maria c, purulent, indurated - Neurological Exam Neurological exam: Present: CN II-XII intact, oriented X3, no focal deficits, strengths equal and symetr throughout. Absent: pronater drift, facial droop, speech deficit Internal Medicine: Result - Labs CBC & Chem 7: 01/01/19 14:55 12/31/18 05:00 Labs: Short CBC 01/01/19 Range/Units 14:55 WBC 5.7 (4.3-11.1) K/mcL Hgb 8.2 L (11.5-15.4) g/dL Hct 25.5 L (35.3-44.9) % Plt Count 227 (140-400) K/mcL Neutrophils # 3.2 (1.6-8.9) K/mcL - Impressions Impressions Cervical Spine CT 01/01/19 17:22 IMPRESSION: Stable exam without evidence for acute abnormality of the cervical spine. D/ / 01/01/2019 18:14:07 David Sparrow MD / johnny Interpreting Provider: David Sparrow MD Head CT 01/01/19 17:22 IMPRESSION: No acute intracranial abnormality. D/ / David Sparrow MD / David Sparrow MD Interpreting Provider: aDvid Sparrow MD Lumbar Spine CT 01/01/19 17:22 IMPRESSION: No acute fracture to the lumbar spine. Stable multilevel degenerative changes. D/ / David Sparrow MD / David Sparrow MD Interpreting Provider: David Sparrow MD Consult Discharge Plan - Plan Referrals: America Henry MD [Primary Care Provider] -
[2019-01-02] MEDS: Lisinopril 20 MG TABLET PO SCH (08:50)
[2019-01-02] MEDS: Gabapentin 300 MG CAPSULE PO SCH ×3 (08:50→20:07)
[2019-01-02] MEDS: tiZANidine 4 MG TABLET PO PRN ×2 (10:07→20:06)
[2019-01-03] MEDS: *HR* OxyCODONE Immed Rel 5 MG TABLET PO PRN ×3 (00:58→16:54)
[2019-01-03] MEDS: *HR* Enoxaparin 40 MG/0.4 ML SYRINGE SQ SCH (05:12)
[2019-01-03] MEDS: Gabapentin 300 MG CAPSULE PO SCH ×3 (07:39→21:17)
[2019-01-03] MEDS: tiZANidine 4 MG TABLET PO PRN ×2 (07:40→21:18)
[2019-01-03] MEDS: Lisinopril 20 MG TABLET PO SCH (07:41)
--- NOTE | 2019-01-03 07:50 | Internal Med Progress Note ---
Date of Encounter: 01/03/19 Time of Encounter: 07:48 - Assessment and plan (1) HTN (hypertension) Current Visit: Yes Status: Chronic Assessment and plan: stable systolic slight high however no intervention needed tolerating meds well continue to follow and adjust as needed. Qualifiers: Hypertension type: essential hypertension Qualified Code(s): I10 - Essential (primary) hypertension (2) Anemia Current Visit: No Status: Chronic Assessment and plan: on iron continue to follow. H/H low but stable Qualifiers: Anemia type: unspecified type Qualified Code(s): D64.9 - Anemia, unspecified (3) S/p total knee replacement, bilateral Current Visit: No Status: Acute Assessment and plan: stable wound doing well right knee recent surgery . 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 No new issues tonight doing well .Pain is well controlled . Slept well . - Constitutional Vitals: Temp Pulse Resp BP Pulse Ox 98.6 F 71 16 146/78 96 01/03/19 06:04 01/03/19 06:04 01/03/19 06:04 01/03/19 06:04 01/03/19 06:04 General appearance: Present: cooperative, A&O X 3, pleasant, no acute distress, answers questions appropriately - Head Head exam: Present: atraumatic - Eye Eye exam: Present: EOMI, PERRL. Absent: scleral icterus Pupils: Present: PERRL - Neck Neck exam general surgery: Present: full ROM, supple. Absent: nuchal rigidity - Respiratory Respiratory exam: Present: CTAB. Absent: prolonged expiratory phase, rales, respiratory distress, rhonchi, stridor, wheezes - Cardiovascular Cardiovascular exam: Present: RRR, +S1, +S2. Absent: JVD, systolic murmur - GI/Abdominal GI/Abdominal exam: Present: normal bowel sounds, soft. Absent: guarding, rebound, rigid, tenderness, no peritoneal signs - Extremities Exam Extremities exam: Present: pedal edema Additional comments: minimal on the right leg , otherwise within normal limits - Incison Incision: Present: clean and dry, intact - Neurological Exam Neurological exam: Present: CN II-XII intact, oriented X3, no focal deficits, strengths equal and symetr throughout Internal Medicine: Result - Labs CBC & Chem 7: 01/01/19 14:55 12/31/18 05:00 Consult Discharge Plan - Plan Referrals: America Henry MD [Primary Care Provider] -
[2019-01-04] MEDS: *HR* Enoxaparin 40 MG/0.4 ML SYRINGE SQ SCH (06:05)
[2019-01-04] MEDS: *HR* OxyCODONE Immed Rel 5 MG TABLET PO PRN (06:17)
[2019-01-04] MEDS: Gabapentin 300 MG CAPSULE PO SCH ×3 (08:27→20:36)
[2019-01-04] MEDS: Lisinopril 20 MG TABLET PO SCH (08:27)
[2019-01-04 08:55] LABS: Estimated Average Glucose 134 mg/dl
--- NOTE | 2019-01-04 09:48 | Internal Med Progress Note ---
Date of Encounter: 01/04/19 Time of Encounter: 09:41 - Assessment and plan (1) Status post total knee replacement, right Current Visit: Yes Status: Acute Assessment and plan: Continue PT and OT. Follow up with ortho as scheduled. Continue oxycodone, Lidoderm patch,tizanidine and ice. Will monitor for effectiveness. (2) Diabetes mellitus Current Visit: Yes Status: Chronic Assessment and plan: Controlled with current medication. Monitor fingerstick blood sugar. Qualifiers: Diabetes mellitus type: type 2 Diabetes mellitus alf insulin use: without intermediate designer use Diabetes mellitus complication status: with other specified complication Qualified Code(s): E11.69 - Type 2 diabetes mellitus with other specified complication (3) HTN (hypertension) Current Visit: Yes Status: Chronic Assessment and plan: Controlled with current medication. Monitor blood pressure. Qualifiers: Hypertension type: essential hypertension Qualified Code(s): I10 - Essential (primary) hypertension (4) Postoperative anemia Current Visit: Yes Status: Acute Assessment and plan: Will continue to monitor labs. - Time Spent With Patient less than 15 minutes - Subjective Interval history: Patient participating well with therapy. ambulating with walker. pain controlled with oxycodone, tizanidine, lidoderm patch and ice. states pain is currently an 8/10 with therapy, but sitting comfortably, smiling and conversive. bowels moving with miralax. denies fever, chill, NVD. denies SOB or chest pain. - Constitutional Vitals: Temp Pulse Resp BP Pulse Ox 98.7 F 63 16 139/76 97 01/04/19 06:59 01/04/19 06:59 01/04/19 06:59 01/04/19 06:59 01/04/19 06:59 General appearance: Present: cooperative, A&O X 3, pleasant, no acute distress, answers questions appropriately - Head Head exam: Present: atraumatic, normocephalic - Eye Eye exam: Present: PERRL, conjuntiva pink, sclera anicteric Pupils: Present: PERRL - Neck Neck exam general surgery: Present: supple, trachea midline. Absent: lymphadenopathy - Respiratory Respiratory exam: Present: CTAB. Absent: accessory muscle use, rales, rhonchi, wheezes - Cardiovascular Cardiovascular exam: Present: RRR, +S1, +S2. Absent: diastolic murmur, gallop, rubs, systolic murmur - GI/Abdominal GI/Abdominal exam: Present: normal bowel sounds, soft, no peritoneal signs. Absent: distended, tenderness - Extremities Exam Extremities exam: Present: warm, radial pulses palpable and symmetrical. Absent: calf tenderness, cyanotic, pedal edema - Incison Comments: Right knee incision dressing dry and intact with moderate amount of surrounding edema. - Neurological Exam Neurological exam: Present: CN II-XII intact, oriented X3, no focal deficits. Absent: pronater drift, facial droop, speech deficit - Skin Skin exam: Present: dry, intact Internal Medicine: Result - Labs CBC & Chem 7: 01/01/19 14:55 12/31/18 05:00 Consult Discharge Plan - Plan Referrals: America Henry MD [Primary Care Provider] -
[2019-01-04] MEDS: tiZANidine 4 MG TABLET PO PRN ×2 (10:41→21:36)
[2019-01-05] MEDS: *HR* Enoxaparin 40 MG/0.4 ML SYRINGE SQ SCH (05:44)
[2019-01-05] MEDS: Gabapentin 300 MG CAPSULE PO SCH ×3 (07:32→21:35)
[2019-01-05] MEDS: *HR* OxyCODONE Immed Rel 5 MG TABLET PO PRN ×3 (07:32→21:35)
[2019-01-05] MEDS: Lisinopril 20 MG TABLET PO SCH (07:32)
--- NOTE | 2019-01-05 11:15 | Internal Med Progress Note ---
Date of Encounter: 01/05/19 Time of Encounter: 11:13 - Assessment and plan (1) Status post total knee replacement, right Current Visit: Yes Status: Acute Assessment and plan: Continue PT and OT. Follow up with ortho as scheduled. Continue oxycodone, Lidoderm patch,tizanidine and ice. Will monitor for effectiveness. (2) Diabetes mellitus Current Visit: Yes Status: Chronic Assessment and plan: Controlled with current medication. Monitor fingerstick blood sugar. 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 Monitor blood pressure. Qualifiers: Hypertension type: essential hypertension Qualified Code(s): I10 - Essential (primary) hypertension (4) Postoperative anemia Current Visit: Yes Status: Acute Assessment and plan: Will continue to monitor labs. - Time Spent With Patient less than 15 minutes - Subjective Interval history: Patient participating well with therapy. ambulating with walker. Flexion to right knee is a 83. Planning for discharge for tomorrow and follows up with orthopedic surgeon on 8\1. Pain is controlled, trying to wean off pain me dications. bowels moving with miralax. denies fever, chill, NVD. denies SOB or chest pain. - Constitutional Vitals: Temp Pulse Resp BP Pulse Ox 97.6 F 69 17 148/73 96 01/05/19 07:14 01/05/19 07:14 01/05/19 07:14 01/05/19 07:14 01/05/19 07:14 General appearance: Present: cooperative, A&O X 3, pleasant, no acute distress, answers questions appropriately - Head Head exam: Present: atraumatic, normocephalic - Eye Eye exam: Present: PERRL, conjuntiva pink, sclera anicteric Pupils: Present: PERRL - Neck Neck exam general surgery: Present: supple, trachea midline. Absent: lymphadenopathy - Respiratory Respiratory exam: Present: CTAB. Absent: accessory muscle use, rales, rhonchi, wheezes - Cardiovascular Cardiovascular exam: Present: RRR, +S1, +S2. Absent: diastolic murmur, gallop, rubs, systolic murmur - GI/Abdominal GI/Abdominal exam: Present: normal bowel sounds, soft, no peritoneal signs. Absent: distended, tenderness - Extremities Exam Extremities exam: Present: warm, radial pulses palpable and symmetrical. Absent: calf tenderness, cyanotic, pedal edema - Incison Comments: Right knee incision dressing dry and intact. Moderate amount of swelling surrounding. - Neurological Exam Neurological exam: Present: CN II-XII intact, oriented X3, no focal deficits. Absent: pronater drift, facial droop, speech deficit - Skin Skin exam: Present: dry, intact Internal Medicine: Result - Labs CBC & Chem 7: 01/01/19 14:55 12/31/18 05:00 Consult Discharge Plan - Plan Referrals: America Henry MD [Primary Care Provider] -
[2019-01-05] MEDS: tiZANidine 4 MG TABLET PO PRN (12:40)
[2019-01-06] MEDS: *HR* Enoxaparin 40 MG/0.4 ML SYRINGE SQ SCH (04:21)
[2019-01-06 08:30] VITALS: BP 155/80
[2019-01-06] MEDS: *HR* OxyCODONE Immed Rel 5 MG TABLET PO PRN (08:54)
[2019-01-06] MEDS: Gabapentin 300 MG CAPSULE PO SCH (08:54)
[2019-01-06] MEDS: Lisinopril 20 MG TABLET PO SCH (08:54)
--- NOTE | 2019-01-06 10:09 | Discharge Summary ---
Date of Encounter: 01/06/19 Time of Encounter: 10:07 - Discharge Diagnosis (1) Status post total knee replacement, right Priority: Primary Status: Acute Comments: Patient had a revision on her right total knee replacement due to hardware failure. Patient's recovery was uneventful and patient participated in physical therapy and progressed well. Patient continues to have moderate pain during mobilization, but has stated his tolerable with current medications. Midline suture line appears healthy and intact. Patient continues with continuous icing. No edema noted. Patient to continue follow-up with orthopedic surgeon and PCP after discharge. Patient will continue therapy to outpatient services (2) HTN (hypertension) Priority: Secondary Status: Chronic Comments: No acute issues during her stay of facility. Patient is continue with current medications after discharge and follow-up with PCP for further management Qualifiers: Hypertension type: essential hypertension Qualified Code(s): I10 - Essential (primary) hypertension (3) Diabetes mellitus Priority: Secondary Status: Chronic Comments: No acute issues during her stay. Patient's glucose was fairly well controlled with most readings on fingersticks less than 200. Patient is continue with current medications after discharge and follow-up with PCP for further management Qualifiers: Diabetes mellitus type: type 2 Diabetes mellitus senior care insulin use: without intermediate card tender use Diabetes mellitus complication status: with other specified complication Qualified Code(s): E11.69 - Type 2 diabetes mellitus with other specified complication Hospital course: Ms. Salgado is a 68 year old female, who was transferred to this facility from [facility] after having a revision of her right total knee replacement on 12/28/18. Patient was recently seen several months ago after having bilateral total knee replacements and had participated in rehabilitation here at [facility]. Patient had progressed with no issues and was eventually discharged to home with home health. Per medical records patient continued to have pain to her right knee and was reevaluated by orthopedic surgeon, who eventually treated her surgically with a revision of hardware. Right knee midline incision appears dry and intact. No ecchymosis or erythema noted. No drainage from wound. Patient states she continues to have moderate pain to right knee after mobilizing, but states that her pain is tolerable with current medications. Patient was observed ambulating with walker and appeared steady. Patient also has a history of diabetes and hypertension. Patient progressed well with physical therapy during her stay of facility. She is continue her current medications after discharge. Patient will follow-up with orthopedic surgeon and PCP after discharge. She will continue her physical therapy through outpatient therapy here at [facility] rehabilitation Discharge discussed with: patient - Time Spent with Patient Total time spent providing and/or coordinating discharge services: Time spent: Less than 30 minutes - Discharge Medications Prescriptions: No Action Pravastatin Sodium [Pravachol] 40 mg PO DAILY Paroxetine HCl [Paxil] 40 mg PO DAILY Lisinopril [Zestril] 20 mg PO DAILY Acetaminophen [Tylenol] 500 mg PO Q8H PRN PRN Reason: Mild To Moderate Pain Aspirin Enteric Coated [Aspirin EC] 325 mg PO BID 10 Days #20 tablet. Docusate Sodium [Colace] 100 mg PO BID 5 Days #10 capsule OxyCODONE Immed Rel [Roxicodone 5 MG] 5 mg PO Q6HR PRN 5 Days #20 tablet PRN Reason: Severe Pain Ferrous Sulfate 325 mg PO BIDWM tablet Gabapentin [Neurontin] 300 mg PO TID capsule Lidocaine Patch [Lidoderm 5% patch] 1 each TP DAILY adh..patch Home Medications: Lisinopril [Zestril] 20 mg PO DAILY 08/27/15 [History] Paroxetine HCl [Paxil] 40 mg PO DAILY 08/27/15 [History] Pravastatin Sodium [Pravachol] 40 mg PO DAILY 08/27/15 [History] Acetaminophen [Tylenol] 500 mg PO Q8H PRN 07/27/18 [History] Aspirin Enteric Coated [Aspirin EC] 325 mg PO BID 10 Days #20 tablet. 12/28/18 [Rx] Docusate Sodium [Colace] 100 mg PO BID 5 Days #10 capsule 12/28/18 [Rx] OxyCODONE Immed Rel [Roxicodone 5 MG] 5 mg PO Q6HR PRN 5 Days #20 tablet 12/28/18 [Rx] Ferrous Sulfate 325 mg PO BIDWM tablet 12/30/18 [Rx] Gabapentin [Neurontin] 300 mg PO TID capsule 12/30/18 [Rx] Lidocaine Patch [Lidoderm 5% patch] 1 each TP DAILY adh..patch 12/30/18 [Rx] Allergies/Adverse Reactions: Allergy/AdvReac Type Severity Reaction Status Date / Time No Known Allergies Allergy Verified 12/28/18 13:29 Date of admission: 12/30/18 15:18 Primary care physician: America Henry Consults: 12/30/18 16:00 Consult to Occupational Therapy [CONS] Routine Comment: Evaluate, develop and implement POC Reason for Consult: s/p RTK revision Does patient have active BEDREST order?: No Is patient medically & hemodynamically stable?: Yes Patient assessed for mobility or mobilized this visit?: Yes Consult to Physical Therapy [CONS] Routine Comment: Evaluate, develop and implement POC Reason for Consult: s/p RTK revision Does patient have active BEDREST order?: No Is patient medically & hemodynamically stable?: Yes Patient assessed for mobility or mobilized this visit?: Yes Consult to Recreational Therapy [CONS] Routine Comment: Evaluate, develop and implement POC Consult to Piping Engineer [CONS] Routine Reason for SW Consult: s/p RTK revision Discharging clinician: Matt Hernandez - Constitutional Vitals: Temp Pulse Resp BP Pulse Ox 98.0 F 80 14 155/80 96 01/06/19 08:29 01/06/19 08:29 01/06/19 08:29 01/06/19 08:29 01/06/19 08:29 General appearance: Present: cooperative, A&O X 3, pleasant, no acute distress, answers questions appropriately - Head Head exam: Present: atraumatic, normocephalic - Eye Eye exam: Present: PERRL, conjuntiva pink, sclera anicteric Pupils: Present: PERRL - Neck Neck exam general surgery: Present: supple, trachea midline. Absent: lymphadenopathy - Respiratory Respiratory exam: Present: decreased breath sounds, CTAB. Absent: accessory muscle use, rales, rhonchi, wheezes - Cardiovascular Cardiovascular exam: Present: RRR, +S1, +S2. Absent: diastolic murmur, gallop, rubs, systolic murmur - GI/Abdominal GI/Abdominal exam: Present: normal bowel sounds, soft, no peritoneal signs. Absent: distended, tenderness - Extremities Exam Extremities exam: Present: warm, radial pulses palpable and symmetrical. Absent: calf tenderness, cyanotic, pedal edema Additional comments: Right knee with midline incision that appears healthy and intact. No ecchymosis or erythema noted. No edema. Patient continues with continuous icing and place - Neurological Exam Neurological exam: Present: CN II-XII intact, oriented X3, no focal deficits. Absent: pronater drift, facial droop, speech deficit - Skin Skin exam: Present: dry, intact - Patient Status Disposition: Home, Self-Care Condition: Good Functional capacity at discharge: uses cane/walker Overall status at discharge: patient is progressing back to baseline - Discharge Instructions Follow Up With: America Henry MD [Primary Care Provider] - - Diet and Activity Activity: ambulate only with your walker, as per physical therapy, increase activity as tolerated Diet: diabetic diet, low fat, low cholesterol, low salt diet
== END 2019-01-06 15:00 | disposition home or self-care (01) | DRG 561 ==
LOC: INPGRE 15:18